=== PATIENT | male | born 1980 ===

== ENCOUNTER 2018-10-05 16:59 | Emergency (ER) | payer MEDICARE, MEDICAID ==
[2018-10-05 17:13] VITALS: BMI 33.9
[2018-10-05 17:14] VITALS: RESP 18; TEMP 98
--- NOTE | 2018-10-05 17:48 | ED PDOC ---
Arrival/HPI - General Chief Complaint: Medical Clearance Time Seen by Provider: 10/05/18 17:01 Historian: Patient - History of Present Illness Narrative History of Present Illness (Text): 10/05/18 17:46 Patient is a 38 yo male who presents for ureteral stent removal. Patient reports that he had a lithotropsy and stent placement in [place]. He was instructed to come to the hospital upon his return to [place] to have the stent removed 1 week later. Patient dose not have a PMD nor urologist in [place]. He has the hospital's name in [place] but does not have any medical records. He is taking cipro. his only complaint is minor burning with urination. Time/Duration: Prior to Arrival Symptom Course: Improving Quality: Burning Past Medical History - Infectious Disease Hx of Infectious Diseases: None - Tetanus Immunization Tetanus Immunization: Unknown - Pulmonary Hx Asthma: Yes Hx Bronchitis: Yes - Neurological Hx Seizures: Yes - HEENT Hx HEENT Disorder: Yes Hx Cataracts: Yes (BILAT. - NO SURGERY YET) Other/Comment: Wears eyeglasses - Renal Hx Renal Disorder: No Hx Kidney Stones: Yes - Endocrine/Metabolic Hx Endocrine Disorders: Yes Hx Diabetes Mellitus Type 2: Yes - Hematological/Oncological Hx Blood Disorders: No - Integumentary Hx Dermatological Disorder: No - Musculoskeletal/Rheumatological Hx Musculoskeletal Disorders: No Hx Falls: No - Gastrointestinal Hx Diverticulitis: Yes (HX: PERFORATED SIGMOID SEC. TO DIVETTICULITIS) - Genitourinary/Gynecological Hx Sexually Transmitted Diseases: No - Psychiatric Hx Anxiety: Yes Hx Bipolar Disorder: Yes Hx Depression: Yes Hx Schizophrenia: Yes Hx Substance Use: Yes (cannabis) - Surgical History Hx Appendectomy: Yes Other/Comment: colostomy and reverse colostomy last year - Anesthesia Hx Anesthesia: Yes Hx Anesthesia Reactions: No Hx Malignant Hyperthermia: No - Suicidal Assessment Feels Threatened In Home Enviroment: No Family/Social History Family/Social History: Unknown Family HX Smoking Status: Light Smoker < 10 Cigarettes Daily Hx Alcohol Use: No Hx Substance Use: Yes (cannabis) Substance used: marijuana Allergies/Home Meds Allergies/Adverse Reactions: Allergies No Known Allergies Allergy (Verified 10/05/18 17:14) Home Medications: Home Meds Medication Instructions Recorded Confirmed Modafinil [Provigil] 100 mg PO DAILY 09/05/15 02/08/18 Review of Systems - Review of Systems Constitutional: absent: Fatigue, Fevers Eyes: absent: Vision Changes ENT: absent: Hearing Changes Respiratory: absent: SOB, Cough Cardiovascular: absent: Chest Pain, Palpitations, Edema Gastrointestinal: absent: Abdominal Pain, Constipation, Diarrhea, Nausea, Vomiting Genitourinary Male: Dysuria. absent: Hematuria Skin: absent: Rash, Pruritis, Skin Lesions Neurological: absent: Headache, Dizziness Endocrine: absent: Diaphoresis Hemo/Lymphatic: absent: Adenopathy Physical Exam Vital Signs Temp Pulse Resp BP Pulse Ox 10/05/18 17:13 98.0 F 71 18 148/96 H 98 Temperature: Afebrile Blood Pressure: Hypertensive Pulse: Regular Respiratory Rate: Normal Appearance: Positive for: Well-Appearing, Non-Toxic, Comfortable Pain Distress: None Mental Status: Positive for: Alert and Oriented X 3 - Systems Exam Head: Present: Atraumatic, Normocephalic Pupils: Present: PERRL Extroacular Muscles: Present: EOMI Conjunctiva: Present: Normal Respiratory/Chest: Present: Clear to Auscultation, Good Air Exchange. No: Respiratory Distress, Accessory Muscle Use Cardiovascular: Present: Regular Rate and Rhythm, Normal S1, S2 Abdomen: No: Tenderness, Distention Back: No: CVA Tenderness Neurological: Present: GCS=15, CN II-XII Intact, Speech Normal Skin: Present: Warm, Dry, Normal Color Psychiatric: Present: Alert, Oriented x 3, Normal Insight, Normal Concentration Medical Decision Making ED Course and Treatment: 10/05/18 17:51 Spoke to patient regarding options of admission versus outpatient PMD and urology referral. Patient opted to get referrals. Disposition/Present on Arrival - Present on Arrival Any Indicators Present on Arrival: No History of DVT/PE: No History of Uncontrolled Diabetes: No Urinary Catheter: No History of Decub. Ulcer: No History Surgical Site Infection Following: None - Disposition Have Diagnosis and Disposition been Completed?: Yes Diagnosis: Nephrolithiasis, S/P ureteral stent placement Disposition: HOME/ ROUTINE Disposition Time: 17:53 Patient Plan: Discharge Patient Problems: Current Active Problems Problem Status Onset Nephrolithiasis Acute S/P ureteral stent placement Acute Condition: GOOD Discharge Instructions (ExitCare): Kidney Stones in Adults Print Language: MOHAWK Additional Instructions: Continue taking cipro as prescribed. Establish care at the [facility]. Establish care with urologist to evaluate for stent removal. Referrals: [facility] [Outside] - Follow up with primary Christofer Haines MD [Staff Provider] - Follow up with primary Forms: [employer] (Pashto)
[2018-10-05 18:36] VITALS: BP 137/74; PULSE 76; O2SAT 99
== END 2018-10-05 18:30 | disposition home or self-care (01) ==
LOC: ED 16:59
DX: N20.0 Calculus of kidney (principal); E11.9 Type 2 diabetes mellitus without complications; F17.210 Nicotine dependence, cigarettes, uncomplicated; F20.9 Schizophrenia, unspecified

== ENCOUNTER 2018-10-11 10:45 | Emergency (ER) | payer MEDICARE, MEDICAID ==
[2018-10-11 10:55] VITALS: BMI 38.0
[2018-10-11 11:00] VITALS: BP 104/54; TEMP 97.8; O2SAT 97
--- NOTE | 2018-10-11 11:20 | ED PDOC ---
Arrival/HPI - General Chief Complaint: Male Genitourinary Time Seen by Provider: 10/11/18 10:47 Historian: Patient - History of Present Illness Narrative History of Present Illness (Text): 10/11/18 11:20 38 year old male, with a past medical history of diverticulitis, asthma, and diabetes, who presents to the emergency department for ureteral stent removal. Patient reports that he had a lithotropsy and stent placement in [place]. He reports slight pressure when urinating. He endorses left flank discomfort and frequent urination. He denies any dysuria, abdominal pain, chest pain, fever, or any other somatic complaints. PMD: None Urologist: Dr. Haines Symptom Onset: Gradual Symptom Course: Unchanged Activities at Onset: Light Context: Home Past Medical History - Provider Review Nursing Documentation Reviewed: Yes - Infectious Disease Hx of Infectious Diseases: None - Tetanus Immunization Tetanus Immunization: Unknown - Cardiac Hx Hypertension: Yes - Pulmonary Hx Asthma: Yes Hx Bronchitis: Yes - Neurological Hx Seizures: Yes - HEENT Hx HEENT Disorder: Yes Hx Cataracts: Yes (BILAT. - NO SURGERY YET) Other/Comment: Wears eyeglasses - Renal Hx Renal Disorder: No Hx Kidney Stones: Yes - Endocrine/Metabolic Hx Endocrine Disorders: Yes Hx Diabetes Mellitus Type 2: Yes - Hematological/Oncological Hx Blood Disorders: No - Integumentary Hx Dermatological Disorder: No - Musculoskeletal/Rheumatological Hx Musculoskeletal Disorders: No Hx Falls: No - Gastrointestinal Hx Diverticulitis: Yes (HX: PERFORATED SIGMOID SEC. TO DIVETTICULITIS) - Genitourinary/Gynecological Hx Sexually Transmitted Diseases: No - Psychiatric Hx Anxiety: Yes Hx Bipolar Disorder: Yes Hx Depression: Yes Hx Schizophrenia: Yes Hx Substance Use: Yes (cannabis) - Surgical History Hx Appendectomy: Yes Other/Comment: colostomy and reverse colostomy last year - Anesthesia Hx Anesthesia: Yes Hx Anesthesia Reactions: No Hx Malignant Hyperthermia: No - Suicidal Assessment Feels Threatened In Home Enviroment: No Family/Social History - Physician Review Nursing Documentation Reviewed: Yes Family/Social History: Unknown Family HX Smoking Status: Light Smoker < 10 Cigarettes Daily Hx Alcohol Use: No Hx Substance Use: Yes (cannabis) Substance used: marijuana Allergies/Home Meds Allergies/Adverse Reactions: Allergies No Known Allergies Allergy (Verified 10/11/18 10:55) Home Medications: Home Meds Medication Instructions Recorded Confirmed Modafinil [Provigil] 100 mg PO DAILY 09/05/15 02/08/18 Review of Systems - Physician Review All systems were reviewed & negative as marked: Yes - Review of Systems Constitutional: absent: Fevers Cardiovascular: absent: Chest Pain Gastrointestinal: absent: Abdominal Pain Genitourinary Male: absent: Dysuria Musculoskeletal: absent: Neck Pain Physical Exam Vital Signs Reviewed: Yes Vital Signs Temp Pulse Resp BP Pulse Ox 10/11/18 11:00 97.8 F 71 18 104/54 L 97 Temperature: Afebrile Blood Pressure: Normal Pulse: Regular Respiratory Rate: Normal Appearance: Positive for: Well-Appearing, Non-Toxic, Comfortable Pain Distress: None Mental Status: Positive for: Alert and Oriented X 3 - Systems Exam Head: Present: Atraumatic, Normocephalic Pupils: Present: PERRL Extroacular Muscles: Present: EOMI Conjunctiva: Present: Normal Mouth: Present: Moist Mucous Membranes Neck: Present: Normal Range of Motion Respiratory/Chest: Present: Clear to Auscultation, Good Air Exchange. No: Respiratory Distress, Accessory Muscle Use Cardiovascular: Present: Regular Rate and Rhythm, Normal S1, S2. No: Murmurs Abdomen: No: Tenderness, Distention, Peritoneal Signs Back: Present: Normal Inspection. No: CVA Tenderness, Midline Tenderness, Paraspinal Tenderness Upper Extremity: Present: Normal Inspection. No: Cyanosis, Edema Lower Extremity: Present: Normal Inspection. No: Edema Neurological: Present: GCS=15, CN II-XII Intact, Speech Normal, Motor Func Grossly Intact, Normal Sensory Function Skin: Present: Warm, Dry, Normal Color. No: Rashes Psychiatric: Present: Alert, Oriented x 3, Normal Insight, Normal Concentration Medical Decision Making ED Course and Treatment: 10/11/18 11:09 Impression: 38 year old male presents to the emergency department complaining of left kidney stent discomfort. Differential Diagnosis included but are not limited to: Left ureteral stent Plan: -- Labs -- Urinalysis -- Reassess and disposition Prior Visits: Notes and results from previous visits were reviewed. Progress Notes: Patient is requesting stent removal, attempt to contact urologist as an outpatient unsuccessful. 10/11/18 13:16 Patient's case was discussed with Dr. Haines, Urology, who will see patient today in his office. KUB completed with left stent noted and no kidney stones. Patient comfortable and still in no pain. UA reviewed and no UTI but should follow the urine culture. Patient states he will go today for follow up. He will return to the ED if there are any issues with fever, chills, blood urine or any other concern. - Scribe Statement The provider has reviewed the documentation as recorded by the Cassiibe Verona Grey All medical record entries made by the Scribe were at my direction and personally dictated by me. I have reviewed the chart and agree that the record accurately reflects my personal performance of the history, physical exam, medical decision making, and the department course for this patient. I have also personally directed, reviewed, and agree with the discharge instructions and disposition. Disposition/Present on Arrival - Present on Arrival Any Indicators Present on Arrival: No History of DVT/PE: No History of Uncontrolled Diabetes: No Urinary Catheter: No History of Decub. Ulcer: No History Surgical Site Infection Following: None - Disposition Have Diagnosis and Disposition been Completed?: Yes Diagnosis: S/P ureteral stent placement Disposition: HOME/ ROUTINE Disposition Time: 13:10 Patient Plan: Discharge Condition: GOOD Discharge Instructions (ExitCare): Ureteral Stent (DC) Additional Instructions: HARSHA BOOTH, thank you for letting us take care of you today. Your provider was Amari Rouse DO and you were treated for Ureteral Stent. The emergency medical care you received today was directed at your acute symptoms. If you were prescribed any medication, please fill it and take as directed. It may take several days for your symptoms to resolve. Return to the Emergency Department if your symptoms worsen, do not improve, or if you have any other problems. PLEASE GO TO SEE DR. HAINES TODAY IN HIS OFFICE AT 6PM. Please contact your doctor or call one of the physicians/clinics you have been referred to that are listed on the Patient Visit Information form that is included in your discharge packet. Bring any paperwork you were given at discharge with you along with any medications you are taking to your follow up visit. Our treatment cannot replace ongoing medical care by a primary care provider outside of the emergency department. Thank you for allowing the [facility] team to be part of your care today. If you had an X-Ray or CT scan: A Radiologist will review the ED reading if any change in treatment is needed we will contact you. If you had a blood, urine, or wound culture: It will take several days for the results, if any change in treatment is needed we will contact you. If you had an STI test: It will take 48 hours for the results. Please call after 1 week if you have not heard back. Referrals: Christofer Haines MD [Staff Provider] - Follow up with primary Forms: [employer] (Tanzanian), WORK NOTE
[2018-10-11 11:40] LABS: URINE BILIRUBIN NEGATIVE (NEGATIVE); URINE BLOOD MODERATE (NEGATIVE); URINE GLUCOSE (UA) NEGATIVE (NEGATIVE); URINE LEUKOCYTE ESTERASE TRACE Leu/uL (NEGATIVE); URINE PROTEIN 30 mg/dL (<30 mg/dL); URINE UROBILINOGEN 0.2 E.U./dL (<1 E.U./dL)
[2018-10-11 11:41] LABS: BASO # 0.04 K/mm3 (0.0-2.0); BASO % 0.6 % (0.0-3.0); EOS # 0.3 (0.0-0.7); EOS % 4.2 % (1.5-5.0); HEMOGLOBIN 14.2 g/dL (14.0-18.0); LYMPH % 28.4 % (22.0-35.0); MEAN CELL VOLUME 89.9 fl (80.0-105.0); MEAN CORPUSCULAR HEMOGLOBIN 31.8 pg (25.0-35.0); MEAN CORPUSCULAR HGB CONC 35.3 g/dl (31.0-37.0); MEAN PLATELET VOLUME 9.6 fl (7.0-11.0); MONO # 0.6 (0.1-0.6); MONO % 8.6 % (1.0-6.0); RBC 4.47 10^6/uL (3.5-6.1); RED CELL DISTRIBUTION WIDTH 12.3 % (11.5-14.5); URINE APPEARANCE CLEAR (CLEAR); URINE COLOR YELLOW (YELLOW); WHITE BLOOD COUNT 7.1 10^3/uL (4.5-11.0)
[2018-10-11 11:50] LABS: BLOOD UREA NITROGEN 18 mg/dL (7-21); CALCIUM 9.3 mg/dL (8.4-10.5); GFR NON-AFRICAN AMERICAN > 60
[2018-10-11 12:07] LABS: URINE BACTERIA MOD /hpf; URINE RBC 25 - 30 /hpf (0-2)
[2018-10-11 13:18] VITALS: PULSE 77; RESP 19
--- NOTE | 2018-10-11 13:48 | RAD ---
Date of service: 10/11/2018 HISTORY: KUB; evaluation of ureteral stent; left side COMPARISON: None available. TECHNIQUE: Two view obtained. FINDINGS: BOWEL: Normal. No obstruction. No free air. BONES: Normal. OTHER FINDINGS: There is a left ureteral stent. There are no stones seen along side the stent IMPRESSION: No active disease.
== END 2018-10-11 13:17 | disposition home or self-care (01) ==
LOC: ED 10:45
DX: Z96.0 Presence of urogenital implants (principal); I10 Essential (primary) hypertension; E11.9 Type 2 diabetes mellitus without complications; F17.210 Nicotine dependence, cigarettes, uncomplicated

== ENCOUNTER 2018-10-13 09:02 | Day surgery (SDC) | payer MEDICARE, MEDICAID ==
[2018-10-13 09:17] VITALS: BMI 35.9
--- NOTE | 2018-10-13 09:29 | ED PDOC ---
Arrival/HPI - General Chief Complaint: Medical Clearance Historian: Patient Past Medical History - Infectious Disease Hx of Infectious Diseases: None - Tetanus Immunization Tetanus Immunization: Unknown - Cardiac Hx Cardiac Disorders: Yes Hx Hypertension: Yes - Pulmonary Hx Respiratory Disorders: Yes Hx Asthma: Yes Hx Bronchitis: Yes - Neurological Hx Neurological Disorder: Yes Hx Seizures: Yes - HEENT Hx HEENT Disorder: Yes Hx Cataracts: Yes (BILAT. - NO SURGERY YET) Other/Comment: Wears eyeglasses - Renal Hx Renal Disorder: Yes Hx Kidney Stones: Yes Other/Comment: L kidney stent - Endocrine/Metabolic Hx Endocrine Disorders: Yes Hx Diabetes Mellitus Type 2: Yes - Hematological/Oncological Hx Blood Disorders: No - Integumentary Hx Dermatological Disorder: No - Musculoskeletal/Rheumatological Hx Musculoskeletal Disorders: No Hx Falls: No - Gastrointestinal Hx Gastrointestinal Disorders: Yes Hx Diverticulitis: Yes (HX: PERFORATED SIGMOID SEC. TO DIVETTICULITIS) - Genitourinary/Gynecological Hx Genitourinary Disorders: No Hx Sexually Transmitted Diseases: No - Psychiatric Hx Psychophysiologic Disorder: Yes Hx Anxiety: Yes Hx Bipolar Disorder: Yes Hx Depression: Yes Hx Schizophrenia: Yes Hx Substance Use: Yes (cannabis) - Surgical History Hx Appendectomy: Yes Other/Comment: colostomy and reverse colostomy last year - Anesthesia Hx Anesthesia: Yes Hx Anesthesia Reactions: No Hx Malignant Hyperthermia: No - Suicidal Assessment Feels Threatened In Home Enviroment: No Family/Social History Smoking Status: Light Smoker < 10 Cigarettes Daily Hx Alcohol Use: No Hx Substance Use: Yes (cannabis) Substance used: marijuana Allergies/Home Meds Allergies/Adverse Reactions: Allergies No Known Allergies Allergy (Verified 10/13/18 09:17) Home Medications: Home Meds Medication Instructions Recorded Confirmed Modafinil [Provigil] 100 mg PO DAILY 09/05/15 02/08/18 Physical Exam Vital Signs Temp Pulse Resp BP Pulse Ox 10/13/18 09:20 97.7 F 61 16 142/83 97 Disposition/Present on Arrival - Present on Arrival History of DVT/PE: No History of Uncontrolled Diabetes: No Urinary Catheter: No History of Decub. Ulcer: No History Surgical Site Infection Following: None - Disposition
[2018-10-13] MEDS ORDERED: Sodium Chloride 0.9% 1,000 ML IV ONE (09:31)
--- NOTE | 2018-10-13 11:39 | ED PDOC ---
Arrival/HPI - General Chief Complaint: Medical Clearance - History of Present Illness Narrative History of Present Illness (Text): 10/13/18 11:36 38 year old M with pmh of diverticulitis, asthma, and diabetes presents for renal stent removal. He was advised by Dr. Haines to present to the ED for renal stent removal. Patient reports last PO intake was last night. Patient denies any fevers, chills, headache, dizziness, chest pain, shortness of breath, dyspnea on exertion, cough, abdominal pain, nausea, vomiting, diarrhea, back pain, neck pain, or any other complaint. Past Medical History - Provider Review Nursing Documentation Reviewed: Yes - Infectious Disease Hx of Infectious Diseases: None - Tetanus Immunization Tetanus Immunization: Unknown - Cardiac Hx Cardiac Disorders: Yes Hx Hypertension: Yes - Pulmonary Hx Respiratory Disorders: Yes Hx Asthma: Yes Hx Bronchitis: Yes - Neurological Hx Neurological Disorder: Yes Hx Seizures: Yes - HEENT Hx HEENT Disorder: Yes Hx Cataracts: Yes (BILAT. - NO SURGERY YET) Other/Comment: Wears eyeglasses - Renal Hx Renal Disorder: Yes Hx Kidney Stones: Yes Other/Comment: L kidney stent - Endocrine/Metabolic Hx Endocrine Disorders: Yes Hx Diabetes Mellitus Type 2: Yes - Hematological/Oncological Hx Blood Disorders: No - Integumentary Hx Dermatological Disorder: No - Musculoskeletal/Rheumatological Hx Musculoskeletal Disorders: No Hx Falls: No - Gastrointestinal Hx Gastrointestinal Disorders: Yes Hx Diverticulitis: Yes (HX: PERFORATED SIGMOID SEC. TO DIVETTICULITIS) - Genitourinary/Gynecological Hx Genitourinary Disorders: No Hx Sexually Transmitted Diseases: No - Psychiatric Hx Psychophysiologic Disorder: Yes Hx Anxiety: Yes Hx Bipolar Disorder: Yes Hx Depression: Yes Hx Schizophrenia: Yes Hx Substance Use: Yes (cannabis) - Surgical History Hx Appendectomy: Yes Other/Comment: colostomy and reverse colostomy last year - Anesthesia Hx Anesthesia: Yes Hx Anesthesia Reactions: No Hx Malignant Hyperthermia: No - Suicidal Assessment Feels Threatened In Home Enviroment: No Family/Social History - Physician Review Nursing Documentation Reviewed: Yes Family/Social History: Unknown Family HX Smoking Status: Light Smoker < 10 Cigarettes Daily Hx Alcohol Use: No Hx Substance Use: Yes (cannabis) Substance used: marijuana Allergies/Home Meds Allergies/Adverse Reactions: Allergies No Known Allergies Allergy (Verified 10/13/18 09:17) Home Medications: Home Meds Medication Instructions Recorded Confirmed Modafinil [Provigil] 100 mg PO DAILY 09/05/15 10/13/18 Ibuprofen [Motrin] 600 mg PO Q6H PRN 10/13/18 10/13/18 Review of Systems - Physician Review All systems were reviewed & negative as marked: Yes - Review of Systems Constitutional: Normal. absent: Fevers Eyes: Normal ENT: Normal Respiratory: Normal Cardiovascular: Normal Gastrointestinal: Normal. absent: Abdominal Pain, Vomiting Genitourinary Male: Normal Musculoskeletal: Normal Skin: Normal Neurological: Normal Endocrine: Normal Hemo/Lymphatic: Normal Psychiatric: Normal Physical Exam Vital Signs Reviewed: Yes Vital Signs Temp Pulse Resp BP Pulse Ox 10/13/18 11:30 78 18 121/78 98 10/13/18 09:20 97.7 F 61 16 142/83 97 Temperature: Afebrile Blood Pressure: Normal Pulse: Regular Respiratory Rate: Normal Appearance: Positive for: Well-Appearing, Non-Toxic, Comfortable Pain Distress: None Mental Status: Positive for: Alert and Oriented X 3 - Systems Exam Head: Present: Atraumatic, Normocephalic Pupils: Present: PERRL Extroacular Muscles: Present: EOMI Conjunctiva: Present: Normal Mouth: Present: Moist Mucous Membranes Neck: Present: Normal Range of Motion Respiratory/Chest: Present: Clear to Auscultation, Good Air Exchange. No: Respiratory Distress, Accessory Muscle Use Cardiovascular: Present: Regular Rate and Rhythm, Normal S1, S2. No: Murmurs Abdomen: No: Tenderness, Distention, Peritoneal Signs Back: Present: Normal Inspection Upper Extremity: Present: Normal Inspection. No: Cyanosis, Edema Lower Extremity: Present: Normal Inspection. No: Edema Neurological: Present: GCS=15, CN II-XII Intact, Speech Normal Skin: Present: Warm, Dry, Normal Color. No: Rashes Psychiatric: Present: Alert, Oriented x 3, Normal Insight, Normal Concentration Medical Decision Making ED Course and Treatment: 10/13/18 11:38 Impression: 38 year old M presents for renal stent removal Plan: -- Reassess and disposition Prior Visits: Notes and results from previous visits were reviewed. Patient was last seen in the emergency department on Progress Notes: - Medication Orders Current Medication Orders: Sodium Chloride (Sodium Chloride 0.9%) 1,000 mls @ 250 mls/hr IV .Q4H ONE Stop: 10/13/18 13:30 Last Admin: 10/13/18 09:42 Dose: 250 mls/hr eMAR Start Stop Document 10/13/18 09:42 EAR (Rec: 10/13/18 09:43 EAR [id number]) Intravenous Solution Start Date 10/13/18 Start Time 09:42 End Date 10/13/18 End time 14:45 Total Infusion Time 303 - Scribe Statement The provider has reviewed the documentation as recorded by the Ana Delacruz All medical record entries made by the Ana were at my direction and personally dictated by me. I have reviewed the chart and agree that the record accurately reflects my personal performance of the history, physical exam, medical decision making, and the department course for this patient. I have also personally directed, reviewed, and agree with the discharge instructions and disposition. Disposition/Present on Arrival - Present on Arrival Any Indicators Present on Arrival: No History of DVT/PE: No History of Uncontrolled Diabetes: No Urinary Catheter: No History of Decub. Ulcer: No History Surgical Site Infection Following: None - Disposition Have Diagnosis and Disposition been Completed?: Yes Diagnosis: History of renal stent Disposition: HOSPITALIZED Disposition Time: 09:30 Condition: GOOD
[2018-10-13] MEDS ORDERED: cefTRIAXone (Rocephin) 1 gm Inj ONE (12:57)
[2018-10-13] MEDS ORDERED: Lidocaine 2% Jelly (Uro-Jet) ONE (12:57)
[2018-10-13] MEDS ORDERED: Iohexol 240 (50 ml) ONE (12:58)
[2018-10-13] MEDS ORDERED: Midazolam 2 MG/2 ML VIAL ONE (13:02)
[2018-10-13] MEDS ORDERED: Propofol 10 mg/ml Inj (20 ML) ONE (13:02)
[2018-10-13] MEDS ORDERED: Ciprofloxacin 400mg/200ml D5W 400 MG/200 ML BAG IVPB STA (13:30)
[2018-10-13] MEDS ORDERED: Oxycodone/Acetaminophen 5/325 mg Tab PO PRN (13:32)
[2018-10-13] MEDS ORDERED: HYDROmorphone 0.5 mg/0.5 ml ISec IVP PRN (14:01)
[2018-10-13] MEDS ORDERED: Gentamicin 80 mg/2mL Inj. IVPB ONE (14:05)
[2018-10-13] MEDS ORDERED: Gentamicin 80 mg in 0.9% NS 80 MG/100 ML BAG IVPB ONE (14:13)
[2018-10-13] MEDS ORDERED: Lactated Ringer's 1,000 ML IV SCH (14:15)
[2018-10-13] MEDS ORDERED: Ciprofloxacin 400mg/200ml D5W 400 MG/200 ML BAG IVPB ONE (14:56)
[2018-10-13 15:11] VITALS: TEMP 97.8
[2018-10-13] MEDS ORDERED: Ciprofloxacin 400mg/200ml D5W IVPB ONE (15:11)
[2018-10-13 15:35] VITALS: BP 112/73; PULSE 63; RESP 18; O2SAT 99
--- NOTE | 2018-10-13 15:35 | RAD ---
Date of service: 10/13/2018 PROCEDURE: Fluoroscopy up to 1 hr HISTORY: Left Urethral stent removal COMPARISON: TECHNIQUE: 7.6 sec of fluoro time. Cumulative dose 4.04 mGy. Three images submitted FINDINGS: Study shows removal of a left ureteral stent. IMPRESSION: As above
--- NOTE | 2018-10-15 13:22 | PN ---
DATE: 10/13/2018 IMMEDIATE POSTOP NOTE Please see history and physical and operative note The patient is in the recovery room. Vital signs are within normal limits. I explained the patient's findings and procedure. The patient has cystoscopy and uteroscopy, stone basketing. No stent inserted. The patient has cleared stone now from the kidney up to ureter. No other obvious abnormalities detected. report of the operation. The patient is status post cystoscopy, uteroscopy, stone basketing. Vital sings are within normal limits. Past medical and surgical, no other changes. PLAN: Antibiotics and discharge home on analgesics, Flomax and Motrin. Pako Haines MD
--- NOTE | 2018-10-15 20:20 | HP ---
DATE OF EXAM: 10/15/2018 An emergency admission through the emergency room. HISTORY OF PRESENT ILLNESS: Mr. Smith is a 38-year-old very pleasant gentleman who I initially met on 10/11/2018. The patient had presented to the emergency room. I spoke to the doctor who certified to me that he was stable and I arranged for him to come to the office immediately. He has a SARS story. He had in [place] where he was visiting (he went to a Dr. Mccauley that I have been able to release from the record) and he started to reach out to the doctor, but I have not spoken to the doctor. But the patient at that time had what he describes as a cystoscopy, a ureteroscopy, and laser, but he is not sure if he had all these notes and he is not sure where all these notes even were and I cannot determine as per the record. I discussed options with the patient including shockwave lithotripsy including a cystoscopy and stent removal. At the time he was in the emergency room, he had a KUB which I reviewed. I do not see any definite stone. From this setting we were discussing different options because sometimes people have undetected stones, they are surprised and I do not want to just remove the stent. Meanwhile while we were discussing the plan, the patient presents now back to the emergency room with severe pain and stent pain and flank pain. It is actually from bringing him in the third visit to the emergency room; so based on that I bringing him to the OR as an immediate surgical procedure. We are going to do a cystoscopy, a ureteroscopy, and if there is any stones within the ureter we are going to either basket them or laser them and then further plans will follow. PAST MEDICAL AND SURGICAL HISTORY: As listed on the chart. No other changes from the Urology standpoint. Again, this is the patient's surgery and most of this is well known and documented. REVIEW OF SYSTEMS: As listed above and is noncontributory. SOCIAL HISTORY: Essentially unremarkable. He came now. MEDICATIONS: See the chart. ALLERGIES: SEE THE CHART. PHYSICAL EXAMINATION: GENERAL: A well-groomed male in no apparent distress. VITAL SIGNS: Within normal limits and included in the chart. LUNGS: Clear. HEART: S1 and S2. ABDOMEN: Soft and nontender. No flank mass is appreciated. GENITOURINARY: Normal male phallus. No testicular masses. RECTAL: Deferred. As listed, but what I will mention now is a 10 to 20 gram, soft, smooth prostate. No specific abnormalities detected. LABORATORY DATA: See chart. DIAGNOSES: Urolithiasis, hematuria, severe flank pain and severe stent pain. ASSESSMENT AND PLAN: In summary, this is an emergency admission, a 38-year-old gentleman admitted to the emergency room. We had discussed options for him. Meanwhile, the plan is as follows; 1. We are going to bring him to the operating room. 2. We will provide antibiotic prophylaxis. 3. We are going to do a cystoscopy. 4. We will discuss and then do an uteroscopy. 5. If we find any stones within the ureter we will do a laser lithotripsy and stone basketing depending on what we find. 6. We have made all the arrangements necessary for the OR. 7. Further plans will follow. Pako Haines MD
--- NOTE | 2018-10-18 09:00 | OP ---
PROCEDURE DATE: 10/13/2018 UROLOGY EMERGENCY OPERATIVE NOTE See history and physical. The patient is admitted as an emergency for severe renal colic. PREOPERATIVE DIAGNOSES: Urolithiasis, hematuria, stone drill, and . POSTOPERATIVE DIAGNOSES: Urolithiasis, hematuria, stone drill and stone. PROCEDURE: Cystoscopy, removal of double-J stent, ureteroscopy, stone basketing. SURGEON: Pako Haines MD COMPLICATIONS: There were no complications. ESTIMATED BLOOD LOSS: Less than 10 mL. UROLOGY OPERATIVE FINDINGS: 1. Normal anterior urethra, no strictures. 2. The verumontanum is minimally visually occlusive. 3. The stent is in good location. 4. There is a ureteral stone that we basketed. See the pictures of basketing. See the details in the report. 5. At the termination of procedure, there were no stones, no stents. The patient tolerated the procedure well without complications. INDICATIONS: See the history and physical. It is an emergency as this patient's surgeon left the ER, we were trying to get further details, but after discussing options, the patient presented now with severe pain. We brought him to the OR quickly as possible. DESCRIPTION OF PROCEDURE: After obtaining informed consent, the patient was placed on the table, and timeout was called to confirm the patient and positioning. Antibiotic prophylaxis was used. We introduced the cystoscope via the urethra. Normal anterior urethra. No strictures. Verumontanum is visually occlusive about 3 cm in length. Urethral stent was identified and removed. A wire was passed up to the kidney. Now, we went up with the semi-rigid ureteroscope. Adjacent to the wire, we had a safety wire up to the kidney which confirmed the positioning with fluoroscopic imaging. On our way up, we identified a stone, some sand debris, but then we actually extracted the stone it was about 3-4 mm in size. At this point, it is around the level of the iliac vessel and it is fairly loose. We placed a basket and removed it without difficulty. We ureteroscoped the patient all the way up to the renal pelvis. We did see the pictures and that will be provided to the patient and also you can see the fluoroscopic imaging. The patient tolerated and at this point removed everything under direct vision. Bladder was emptied and cystoscope removed. The patient tolerated without complication. This is an emergency procedure. We found the stone. Pako Haines MD
== END 2018-10-13 18:15 | disposition home or self-care (01) ==
LOC: ED 09:02 → SDS 13:03
PROVIDERS: ATTEND Urology
DX: N20.1 Calculus of ureter (principal); T83.84XA Pain due to genitourinary prosthetic devices, implants and grafts, initial encounter; Y83.8 Other surgical procedures as the cause of abnormal reaction of the patient, or of later complication, without mention of misadventure at the time of the procedure; E11.9 Type 2 diabetes mellitus without complications; I10 Essential (primary) hypertension; F17.210 Nicotine dependence, cigarettes, uncomplicated; F31.9 Bipolar disorder, unspecified; F20.9 Schizophrenia, unspecified; F41.9 Anxiety disorder, unspecified; J45.909 Unspecified asthma, uncomplicated
CPT/HCPCS: 52352; 76000; 88300; 96360; 96361; 99283; C1769; J0696; J0744; J1170; J1580 ×2; J2250; J2704; J3010; J7030; J7120 ×2; Q9966